=== PATIENT | female | born 1955 | race Caucasian/White ===

== ENCOUNTER → 2018-07-31 | Outpatient (REF) | DX: Z02.9 Encounter for administrative examinations, unspecified (principal) ==

== ENCOUNTER → 2018-08-28 | Outpatient (CLI) | payer OTHER ==
[~2018-08-28] MED LIST: CYAN500T38 PO; IBUP-136 PO; LEVO88TA45 PO; PNEI IM; ROSU10TA5 PO
== END ==
LOC: LAB 13:06
PROVIDERS: ATTEND Emergency Medicine
DX: D75.89 Other specified diseases of blood and blood-forming organs (principal); R39.9 Unspecified symptoms and signs involving the genitourinary system; R79.89 Other specified abnormal findings of blood chemistry; M79.10 Myalgia, unspecified site; G62.9 Polyneuropathy, unspecified; R35.8 Other polyuria
CPT/HCPCS: 36415; 81001; 82306; 82310; 82374; 82435; 82565; 82607; 82746; 82947; 83036; 83970; 84132; 84295; 84520

== ENCOUNTER → 2018-11-24 | Outpatient (CLI) | payer OTHER ==
[~2018-11-24] MED LIST changes: +CIPR-345 PO; +DOXY-179 PO; +PROM473S4 PO
[2018-11-24 11:12] LABS: PLATELET COUNT, AUTOMATED 232 K/uL (150-450)
== END ==
LOC: LAB 10:45
PROVIDERS: ATTEND Emergency Medicine
DX: R05 Cough (principal); E78.5 Hyperlipidemia, unspecified
CPT/HCPCS: 36415; 82040; 82247; 82310; 82374; 82435; 82465; 82565; 82947; 83718; 84075; 84132; 84155; 84295; 84450; 84460; 84478; 84520; 85025; 86140

== ENCOUNTER → 2018-12-06 | Outpatient (CLI) | payer OTHER ==
--- NOTE | 2018-12-07 09:44 | RADIOLOGY IMAGING REPORT ---
FACILITY: [facility] [place] PATIENT NAME: RAISA NAM : [id number] MR: [id number]: [id number] EXAM DATE: [id number] ORDERING PHYSICIAN: BARON STOKES TECHNOLOGIST: Eunice Brennan RDMS PROCEDURE:US LEFT BREAST COMPARISON:Today's mammogram 12/06/18. INDICATIONS:SIX MONTH FOLLOW UP FINDINGS: In the 12 o'clock position of the Left breast 3cm from the nipple is a small well circumscribed ovoid hypoechoic nodule measuring 4.2 x 1.8 x 3mm. There is no acoustic shadowing. The nodule is wider than tall and may represent a small debris filled cyst. In the 11 o'clock position of the Left breast 2cm from the nipple is a well circumscribed ovoid hypoechoic nodule measuring 3.8 x 2 x 3.1mm which appears to represent small debris filled cyst. This likely accounts for Today's mammographic findings. DIAGNOSTIC CATEGORY 2--BENIGN FINDING. RECOMMENDATIONS: ROUTINE MAMMOGRAM AND CLINICAL EVALUATION. IMPRESSION: BIRADS 2: Benign finding. Small debris filled cysts are identified in the 12 & 11 o'clock position of the Left breast which likely account for Today's mammographic finding. Dictated by: Megan Dumont M.D. on 12/06/2018 at 16:34 Transcribed by: EDITH on 12/07/2018 at 8:24 Approved by: Megan Dumont M.D. on 12/07/2018 at 9:42 [facility]
--- NOTE | 2018-12-07 09:44 | RADIOLOGY IMAGING REPORT ---
FACILITY: [facility] PATIENT NAME: RAISA NAM : [id number] MR: [id number] V: [id number] EXAM DATE: [id number] ORDERING PHYSICIAN: BARON STOKES TECHNOLOGIST: Ayaka Walker PROCEDURE:BILATERAL DIAGNOSTIC DIGITAL MAMMOGRAM WITH CAD ASSISTED INTERPRETATION & 3D TOMOSYNTHESIS COMPARISON:Prior mammograms 07/12/17, 07/06/17. INDICATIONS:SIX MONTH FOLLOW UP FINDINGS: There are areas of scattered fibroglandular density seen throughout the breasts. Most of the parenchymal pattern has remained stable when compared to the prior mammogram. There is a small nodular area in the approximate 12 o'clock position of the Left breast. Today's Left breast Ultrasound did reveal 2 small debris filled cysts in the 11 & 12 o'clock positions of the Left breast which would likely account for this finding. DIAGNOSTIC CATEGORY 2--BENIGN FINDING. RECOMMENDATIONS: ROUTINE MAMMOGRAM AND CLINICAL EVALUATION. IMPRESSION: BIRADS 2: Benign finding. Dictated by: Megan Dumont M.D. on 12/06/2018 at 16:37 Transcribed by: EDITH on 12/07/2018 at 8:16 Approved by: Megan Dumont M.D. on 12/07/2018 at 9:42 [facility]
== END ==
LOC: US 01:07
PROVIDERS: ATTEND Nurse Practitioner Family
DX: N60.02 Solitary cyst of left breast (principal)
CPT/HCPCS: 77062; 77066

== ENCOUNTER → 2019-03-26 | Outpatient (CLI) | payer OTHER ==
[~2019-03-26] MED LIST changes: -CYAN500T38 PO; +CYAN500T39 PO; +ROSU10TA PO; +SUMA100T32 PO
== END ==
LOC: LAB 14:11
PROVIDERS: ATTEND Nurse Practitioner Primary Care
DX: N39.0 Urinary tract infection, site not specified (principal); B96.20 Unspecified Escherichia coli [E. coli] as the cause of diseases classified elsewhere
CPT/HCPCS: 87077; 87088; 87186